=== PATIENT | female | born 1960 | race Hispanic/Latino ===

== ENCOUNTER → 2017-10-16 | Day surgery (SDC) | payer MEDICARE ==
[~2017-10-16] MED LIST: ADVAIR 250-501 EACH; ALBUTEROL; ALEVE220 M1 PO; ALLEGRA180 MG PO; ARICEPT5 MG PO; ASPIR 8181 MG PO; BUPIVACAINE HCL 0.5% INJ 30 ML VIAL INJ ONE; CEFAZOLIN SOD 1 GM VIAL ONE; CEFUROXIME250 MG PO; ESCITALOPRAM OX10 MG PO; ETODOLAC400 MG PO; FENTANYL CITRATE/PF 100MCG/2 ML INJ ONE; JANUVIA100 MG PO; LIPITOR10 MG PO; LOSARTAN POTAS100 MG PO; METFORMIN HCL500 M1 PO; MIDAZOLAM HCL 2 MG/2 ML VIAL ONE; MONTELUKAST SOD10 MG PO; NEOMYCIN/POLYMYX/BACITR OINT 0.9 GM PKT ONE; OMEPRAZOLE40 MG PO; PRO AIR INH; RANITIDINE HCL150 M1 PO; SINGULAIR10 MG; SINGULAIR10 MG PO; ZOLOFT50 MG PO; ZYRTEC10 M3
--- OUTSIDE RECORDS SUMMARY | 2017-10-16 08:06 | XMS REPORT ---
Author Author Admin, [place] Organization [facility] Address Unknown Phone Unavailable Allergies, Adverse Reactions, Alerts Allergy Name Reaction Description Start Date Severity Status Provider PEANUTS anaphalaxis Critical Active Vitaliy Negro MD LATEX rash Mild Active Vitaliy Negro MD Conditions or Problems Problem Name Problem Code Onset Date Status Entry Date Provider Comment Standard Description Annotate Breast mass, benign 611.72 Active Evi Wall MA Lump or mass in breast Annual gynecological examination V72.3 Active Vitaliy Negro MD Special investigations and examinations - Gynecological examination Cervix, screening for malignant neoplasm V76.2 Active Vitaliy Negro MD Screening for malignant neoplasms of the cervix Mammogram not high risk screening V76.12 Active Vitaliy Negro MD Other screening mammogram Screening for osteoporosis V82.81 Active Vitaliy Negro MD Screening for osteoporosis Medication List Medication Instructions Start Date Stop Date Generic Name NDC Status Provider Patient Instruction CALCITRATE PLUS D 315-200 MG-UNIT ORAL TABLET ONE DAILY CALCIUM CITRATE-VITAMIN D 34504544490 Active Vitaliy Negro MD Active ETODOLAC ER 400 MG ORAL TABLET EXTENDED RELEASE 24 HOUR 1 TB BID ETODOLAC 29059845011 Active Vitaliy Negro MD Active FLONASE ALLERGY RELIEF 50 MCG/ACT NASAL SUSPENSION Every Day FLUTICASONE PROPIONATE 84817360226 Active Vitaliy Negro MD Active OMEPRAZOLE 40 MG ORAL CAPSULE DELAYED RELEASE TK ONE C PO BID BEFORE BREAKFAST AND DINNER OMEPRAZOLE 04836619473 Active Vitaliy Negro MD Active METFORMIN HCL 500 MG ORAL TABLET TK 2 T PO BID METFORMIN HCL 60428222715 Active Vitaliy Negro MD Active ESCITALOPRAM OXALATE 10 MG ORAL TABLET TK 1 T PO QD ESCITALOPRAM OXALATE 55969311614 Active Vitaliy Negro MD Active MONTELUKAST SODIUM 10 MG ORAL TABLET TK 1 T PO QHS MONTELUKAST SODIUM 23875046500 Active Vitaliy Negro MD Active ATORVASTATIN CALCIUM 10 MG ORAL TABLET TK 1 T PO QHS ATORVASTATIN CALCIUM 84708564915 Active Vitaliy Negro MD Active ADVAIR DISKUS 250-50 MCG/DOSE INHALATION AEROSOL POWDER BREATH ACTIVATED USE 1 INHALATION PO BID FLUTICASONE-SALMETEROL 32739632064 Active Vitaliy Negro MD Active SPIRIVA RESPIMAT 2.5 MCG/ACT INHALATION AEROSOL SOLUTION INHALE 2 PUFFS PO D TIOTROPIUM BROMIDE MONOHYDRATE 22640405901 Active Vitaliy Negro MD Active JANUVIA 100 MG ORAL TABLET TK 1 T PO BID SITAGLIPTIN PHOSPHATE 11021683356 Active Vitaliy Negro MD Active Vital Signs Date Name Value Unit Range Description blood pressure, diastolic 77 mm[Hg] BP walker blood pressure, systolic 113 mm[Hg] BP sys height E&M 62 [in_us] Bdy height pulse rate E&M 68 /min Heart rate respiratory rate E&M 17 /min Resp rate temperature E&M 98.3 [degF] Body temperature weight E&M 210.80 [lb_av] Weight Measured Procedures Code Procedure Name Date Entry Date Standard Description CPT-16815 Est Patient Well Exam (40 - 64 Yrs) - 67754 14:29:36 CDT CPT-37081 Est Patient Well Exam (40 - 64 Yrs) - 37850 08:53:30 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
--- NOTE | 2017-12-21 08:56 | Operative Report ---
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 Plantar fasciitis, right foot. 2. Bone spur, right foot. POSTOPERATIVE DIAGNOSES 1. Plantar fasciitis, right foot. 2. Bone spur, right foot. PROCEDURES 1. Endoscopic plantar fasciotomy, right foot. 2. Excision of bone spur, right foot. 3. Use of human allograft to promote healing to prevent adhesions. COMPLICATIONS: None. CONDITION: Stable. ANESTHESIA: General anesthetic. HEMOSTASIS: Pneumatic ankle tourniquet at 250 mmHg. ESTIMATED BLOOD LOSS: Less than 10 mL. PROCEDURE IN DETAIL: Under mild sedation, the patient was brought to the operating room and placed on the operating table in the supine position. Following IV sedation, anesthesia was obtained with a general anesthetic. At this point, the right foot was scrubbed, prepped and draped in the usual aseptic manner. It was then lowered to the table. Endoscopic plantar fasciotomy. Attention was then directed to the medial aspect of the right foot where a linear incision was made overlying the insertion of the plantar fascia. The incision was deepened via sharp and blunt dissection taking care to retract or cauterize neurovascular structures as necessary. It was deepened down to the level of the fascia. A fascial elevator was used to isolate the fascia. Once the fascia was isolated, the trochanteric area was entered. A lateral portal was made. Medial, central and lateral bands were visualized. Once a camera was inserted utilizing a fascial blade, central and medial bands were transected through and through. The lateral bands were left intact. All instruments were removed. Excision of bone spur. Attention was then directed to the medial aspect of the right foot where utilizing sharp and blunt dissection and under the use of intraoperative fluoroscopy, the bone spur was isolated. Once the bone spur was isolated, utilizing a combination of a power rasp and a bone rongeur, the bone spur was removed. The area was then re-smoothed. This was confirmed with the use of intraop fluoroscopy. The use of human allograft was inserted into the area in order to promote healing to prevent adhesions. The areas were then closed closing with 4-0 nylon. Clean dressing was applied consisting of Adaptic, 4 x 4's, Kerlix and an Juan bandage. The tourniquet was deflated. There was noted to be hyperemic response to all the digits. The patient tolerated the procedure and anesthesia well without complications. Was transported to the recovery room with vital signs stable and vascular status intact to both feet. The patient will be discharged home once she meets criteria. She was given instructions to be nonweightbearing, ice and elevate the foot while at rest, and to follow up with me in the office. I discussed the symptoms of DVT. She will call the office for any questions, concerns or any problems arise. Job#: [id number] MAXIMILIANO
== END | disposition home or self-care (01) ==
LOC: OR 08:03
PROVIDERS: ATTEND Podiatrist Foot & Ankle Surgery
DX: M72.2 Plantar fascial fibromatosis (principal); M77.51 Other enthesopathy of right foot and ankle; J45.909 Unspecified asthma, uncomplicated; G47.33 Obstructive sleep apnea (adult) (pediatric); E11.9 Type 2 diabetes mellitus without complications; I10 Essential (primary) hypertension; E66.01 Morbid (severe) obesity due to excess calories; K21.9 Gastro-esophageal reflux disease without esophagitis; R00.1 Bradycardia, unspecified; H91.90 Unspecified hearing loss, unspecified ear; F32.9 Major depressive disorder, single episode, unspecified; F41.9 Anxiety disorder, unspecified; Z91.048 Other nonmedicinal substance allergy status; Z91.040 Latex allergy status; Z01.810 Encounter for preprocedural cardiovascular examination; Z79.82 Long term (current) use of aspirin; Z79.84 Long term (current) use of oral hypoglycemic drugs
CPT/HCPCS: 28104; 29893; 36415; 76000; 82948; 93005; J0690; J2250; Q4150

== ENCOUNTER 2019-01-06 11:04 | Emergency (ER) | payer MEDICARE ==
[~2019-01-06] VITALS: Ht 157.5 cm; Wt 108.9 kg
[~2019-01-06 11:04] MED LIST changes: -BUPIVACAINE HCL 0.5% INJ 30 ML VIAL INJ ONE; -CEFAZOLIN SOD 1 GM VIAL ONE; -FENTANYL CITRATE/PF 100MCG/2 ML INJ ONE; -MIDAZOLAM HCL 2 MG/2 ML VIAL ONE; -NEOMYCIN/POLYMYX/BACITR OINT 0.9 GM PKT ONE
--- OUTSIDE RECORDS SUMMARY | 2019-01-06 11:07 | XMS REPORT | Continuity of Care Document ---
Author Author [employer] Address Unknown Phone Unavailable Care Team Providers Care Tank Inspector Name Role Phone [employer] Unavailable Unavailable Problems Problem Status Onset Date Classification Date Reported Comments Source Breast mass, benign Active 03/16/2017 Diagnosis 10/15/2017 [facility] Mammogram not high risk screening Active 08/01/2016 Diagnosis 10/15/2017 [facility] Cervix, screening for malignant neoplasm Active 08/01/2016 Diagnosis 10/15/2017 [facility] Screening for osteoporosis Active 08/01/2016 Diagnosis 10/15/2017 [facility] Annual gynecological examination Active 08/01/2016 Diagnosis 10/15/2017 [facility] Medications Medication Details Route Status Patient Instructions Ordering Provider Order Date Source CALCIUM CITRATE-VITAMIN D ONE DAILY Active ONE DAILY 08/01/2016 [facility] FLONASE ALLERGY RELIEF 50 MCG/ACT NASAL SUSPENSION Every Day Active Every Day 08/01/2016 [facility] ETODOLAC ER 400 MG ORAL TABLET EXTENDED RELEASE 24 HOUR 1 TB BID Active 1 TB BID 08/01/2016 [facility] OMEPRAZOLE TK ONE C PO BID BEFORE BREAKFAST AND DINNER Active TK ONE C PO BID BEFORE BREAKFAST AND DINNER 07/24/2016 [facility] METFORMIN HCL TK 2 T PO BID Active TK 2 T PO BID 06/21/2016 [facility] ESCITALOPRAM OXALATE TK 1 T PO QD Active TK 1 T PO QD 06/06/2016 [facility] MONTELUKAST SODIUM TK 1 T PO QHS Active TK 1 T PO QHS 05/31/2016 [facility] ATORVASTATIN CALCIUM TK 1 T PO QHS Active TK 1 T PO QHS 04/30/2016 [facility] ADVAIR DISKUS 250-50 MCG/DOSE INHALATION AEROSOL POWDER BREATH ACTIVATED USE 1 INHALATION PO BID Active USE 1 INHALATION PO BID 04/25/2016 [facility] SPIRIVA RESPIMAT 2.5 MCG/ACT INHALATION AEROSOL SOLUTION INHALE 2 PUFFS PO D Active INHALE 2 PUFFS PO D 03/15/2016 [facility] JANUVIA 100 MG ORAL TABLET TK 1 T PO BID Active TK 1 T PO BID 03/14/2016 [facility] Allergies, Adverse Reactions, Alerts Substance Category Reaction Severity Reaction type Status Date Reported Comments Source PEANUTS food allergy anaphalaxis 08/01/2016 [facility] LATEX allergy to substance rash 08/01/2016 [facility] Immunizations No Data Provided for This Section Results No Data Provided for This Section Pathology Reports No Data Provided for This Section Diagnostic Reports No Data Provided for This Section Consultation Notes No Data Provided for This Section Discharge Summaries No Data Provided for This Section History and Physicals No Data Provided for This Section Vital Signs Vital Sign Value Date Comments Source Diastolic (mm Hg) 77 10/09/2017 [facility] Systolic (mm Hg) 113 10/09/2017 [facility] Height 62 10/09/2017 [facility] Heart Rate 68 10/09/2017 [facility] Respitory Rate 17 10/09/2017 [facility] Temperature Oral (F) 98.3 F 10/09/2017 [facility] Weight 210.80 10/09/2017 [facility] Encounters No Data Provided for This Section Procedures Procedure Code Date Perfomer Comments Source Est Patient Well Exam (40 - 64 Yrs) - [id number] 18310 10/09/2017 Marky Hathaway Est Patient Well Exam (40 - 64 Yrs) - 57742 19555 08/01/2016 Marky Hathaway New Patient Well Exam (18 - 39 Yrs) - [id number] 22207 08/01/2016 Marky Hathaway Assessment and Plan No Data Provided for This Section Plan of Care No Data Provided for This Section Social History No Data Provided for This Section Family History No Data Provided for This Section Advance Directives No Data Provided for This Section Functional Status No Data Provided for This Section
--- OUTSIDE RECORDS SUMMARY | 2019-01-06 11:07 | XMS REPORT ---
Author Author [facility] Address Unknown Phone Unavailable Care Team Providers Care Supervisor Taping Name Role Phone Unavailable Unavailable Payers Payer Name Policy Type Policy Number Effective Date Expiration Date Problems This patient has no known problems. Allergies, Adverse Reactions, Alerts Allergy Name Allergy Type Status Severity Reaction(s) Onset Date Inactive Date Treating Clinician Comments latex DA Active [place] 2013-07-30 00:00:00 Medications This patient has no known medications.
--- OUTSIDE RECORDS SUMMARY | 2019-01-06 11:07 | XMS REPORT ---
Author Author Admin, [place] Organization [facility] Address Unknown Phone Unavailable Allergies, [...] ORAL TABLET ONE DAILY CALCIUM CITRATE-VITAMIN D 88450004514 Active Vitaliy Negro MD Active ETODOLAC ER 400 MG ORAL TABLET EXTENDED RELEASE 24 HOUR 1 TB BID ETODOLAC 19916343716 Active Vitaliy Negro MD Active FLONASE ALLERGY RELIEF 50 MCG/ACT NASAL SUSPENSION Every Day FLUTICASONE PROPIONATE 77998503334 Active Vitaliy Negro MD Active OMEPRAZOLE 40 MG ORAL CAPSULE DELAYED RELEASE TK ONE C PO BID BEFORE BREAKFAST AND DINNER OMEPRAZOLE 41408483051 Active Vitaliy Negro MD Active METFORMIN HCL 500 MG ORAL TABLET TK 2 T PO BID METFORMIN HCL 98570026717 Active Vitaliy Negro MD Active ESCITALOPRAM OXALATE 10 MG ORAL TABLET TK 1 T PO QD ESCITALOPRAM OXALATE 38054237119 Active Vitaliy Negro MD Active MONTELUKAST SODIUM 10 MG ORAL TABLET TK 1 T PO QHS MONTELUKAST SODIUM 28403317785 Active Vitaliy Negro MD Active ATORVASTATIN CALCIUM 10 MG ORAL TABLET TK 1 T PO QHS ATORVASTATIN CALCIUM 68810344706 Active Vitaliy Negro MD Active ADVAIR DISKUS 250-50 MCG/DOSE INHALATION AEROSOL POWDER BREATH ACTIVATED USE 1 INHALATION PO BID FLUTICASONE-SALMETEROL 78270432842 Active Vitaliy Negro MD Active SPIRIVA RESPIMAT 2.5 MCG/ACT INHALATION AEROSOL SOLUTION INHALE 2 PUFFS PO D TIOTROPIUM BROMIDE MONOHYDRATE 43669091091 Active Vitaliy Negro MD Active JANUVIA 100 MG ORAL TABLET TK 1 T PO BID SITAGLIPTIN PHOSPHATE 40923229461 Active Vitaliy Negro MD Active Vital Signs [...] Procedure Name Date Entry Date Standard Description CPT-18853 Est Patient Well Exam (40 - 64 Yrs) - 19169 14:29:36 CDT CPT-65314 Est Patient Well Exam (40 - 64 Yrs) - 27787 08:53:30 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
[2019-01-06] MEDS ORDERED: HYDROCODONE/APAP 10MG-325MG TAB PO NR (11:45)
--- NOTE | 2019-01-06 13:11 | Diagnostic Imaging Report ---
EXAMINATION: ANKLE 3+ VIEWS LEFT INDICATION: Trauma COMPARISON: None FINDINGS: 3 views of the left ankle demonstrate no acute fracture or dislocation. No ankle joint effusion. Mild medial ankle soft tissue swelling.. Mild Achilles enthesopathy and small plantar calcaneal spur. IMPRESSION: Medial ankle soft tissue swelling. No underlying acute osseous injury. Signed by: Jodie Pascal MD on 01/06/2019 1:07 PM
--- NOTE | 2019-01-06 13:13 | Diagnostic Imaging Report ---
EXAMINATION: HIPS BILAT TWO VWS(+/- PELVIS) INDICATION: Trauma COMPARISON: None FINDINGS: No acute fracture or dislocation. Mild degenerative changes of both hip joints. Moderate to severe degenerative changes of the symphysis pubis. Nonobstructive bowel gas pattern. Phleboliths in the pelvis. IMPRESSION: No acute osseous injury. Signed by: Jodie Pascal MD on 01/06/2019 1:10 PM
== END 2019-01-06 15:00 | disposition home or self-care (01) ==
LOC: ER 11:04
DX: S70.01XA Contusion of right hip, initial encounter (principal); S90.02XA Contusion of left ankle, initial encounter; W01.0XXA Fall on same level from slipping, tripping and stumbling without subsequent striking against object, initial encounter; Y93.01 Activity, walking, marching and hiking; Y92.008 Other place in unspecified non-institutional (private) residence as the place of occurrence of the external cause; I10 Essential (primary) hypertension; E11.9 Type 2 diabetes mellitus without complications
CPT/HCPCS: 73521; 99283

== ENCOUNTER 2019-08-12 09:00 | Outpatient (RCR) | payer MEDICARE | END 2019-09-02 | LOC: PT 09:00 | PROVIDERS: ATTEND Specialist | DX: M17.0 Bilateral primary osteoarthritis of knee (principal); M25.562 Pain in left knee; M25.561 Pain in right knee; M25.461 Effusion, right knee; M62.81 Muscle weakness (generalized); R26.9 Unspecified abnormalities of gait and mobility ==